=== PATIENT | female | born 1990 | race Caucasian/White ===

== ENCOUNTER 2019-08-08 11:00 | Inpatient (IN) ==
[2019-08-08] MEDS ORDERED: OXYTOCIN 30 UNITS/500 ML BAG IV PRN ×2 (12:40→20:06)
[2019-08-08 13:01] LABS: Hematocrit (blood only) 40.2 % (37-47); Hemoglobin 13.7 g/dL (12.0-16.0); Mean Corpuscular Hemoglobin 32.1 pg (25-34); Mean Corpuscular Volume 94.1 fL (80-100); Mean Platelet Volume 11.3 fL (7.4-10.4); Platelet Count 236 K/uL (130-400); RDW Coefficient of Variation 13.4 % (11.5-14.5); RDW Standard Deviation 45.8 fL (36.4-46.3); Red Blood Count 4.27 M/uL (4.2-5.4)
[2019-08-08 13:25] LABS: Albumin Level 2.9 gm/dl (3.4-5.0); BUN Creatinine Ratio 16.6 (10-20); Calcium 8.8 mg/dl (8.5-10.1); Creatinine Clr Calc Pharmacy 123.9 ml/min; Est GFR (African American) 118.1; Est GFR (Non-African American) 101.9; Mean Corpuscular Hgb Conc 34.1 g/dL (32-36); Potassium 4.1 mmol/L (3.5-5.1)
[2019-08-08 13:28] LABS: Albumin Globulin Ratio 0.7 (0.9-2); Bilirubin,Total 0.4 mg/dl (0.2-1); Globulin 4.4 gm/dl (2.5-4.0); Total Protein 7.3 gm/dl (6.4-8.2)
--- NOTE | 2019-08-08 13:35 | Obstetrical Progress Note ---
Date of Service August 08, 2019 Subjective Admission Note Pt is a 28yo at 36 weeks Hx of preeclampsia in last that led delivery at 36 weeks In this pt has had mild preecalmsia based on BP,proteinuria and 24Hr urine criteria Today she presented for NST and BP check and had 2 elevated BP's in the severe range as well as headache.-This ruled her in as severe preeclampsia Discussed induction with pt and spouse Both agreed to induction of labor FHR; CAT1 Ctx mild on admission VE; 1soft/[facility]; Vt Plan; BMTX GBs culx done Reese bulb placed with 30 cc saline pt tolerated procedure well Results & Data ([facility]) Vital Signs (Past 12 Hours) Vital Signs Temp Pulse Resp BP 08/08/19 13:01 70 155/96 H 08/08/19 12:11 80 142/97 H 08/08/19 11:46 37.2 C 78 20 149/99 H 08/08/19 11:39 78 149/99 H 08/08/19 11:31 83 146/98 H 08/08/19 11:18 86 162/104 H 08/08/19 11:09 95 H 178/102 H
[2019-08-08] MEDS: LACTATED RINGER'S 1,000 ML IV PRN ×2 (13:49→21:26)
[2019-08-08] MEDS ORDERED: OXYTOCIN 30 UNITS/500 ML BAG IV SCH (14:00)
[2019-08-08] MEDS ORDERED: BETAMETH SOD PHOS/ACETATE IA 6 MG/ML IM STA (15:34)
[2019-08-08] MEDS ORDERED: ACETAMINOPHEN 1000 MG/100 ML IV IV PRN (16:00)
[2019-08-08] MEDS ORDERED: PENICILLIN G POTASSIUM 6 MU in DEXTROSE 5% 250 ML IV ONE (16:15)
[2019-08-08] MEDS ORDERED: ACETAMINOPHEN 500 MG TAB PO PRN (16:19)
[2019-08-08] MEDS ORDERED: PENICILLIN G POTASSIUM 3 MU in DEXTROSE 5% 100 ML IV PRN (20:00)
--- NOTE | 2019-08-08 20:06 | Obstetrical Progress Note ---
Date of Service August 08, 2019 Assessment & Plan Admission and Anticipated Discharge Date Admission Date: August 08, 2019 Subjective Reese fell out FHR; CAT1 Ctx Minimal VE;2/50/-3 Unable to SROM Plan start Pitocin discussed plan with pt pt agrees to Pitocin use Results & Data ([facility]) Vital Signs (Past 12 Hours) Vital Signs Temp Pulse Resp BP 08/08/19 19:00 37.6 C H 18 08/08/19 18:38 73 149/94 H 08/08/19 17:39 72 149/96 H 08/08/19 16:38 64 142/90 H 08/08/19 15:27 37.1 C 68 20 157/97 H 08/08/19 15:12 67 148/97 H 08/08/19 14:58 70 147/92 H 08/08/19 14:42 67 144/100 H 08/08/19 14:39 76 143/99 H 08/08/19 14:26 78 138/94 08/08/19 13:01 70 155/96 H 08/08/19 12:11 80 142/97 H 08/08/19 11:46 37.2 C 78 20 149/99 H 08/08/19 11:39 78 149/99 H 08/08/19 11:31 83 146/98 H 08/08/19 11:18 86 162/104 H 08/08/19 11:09 95 H 178/102 H
[2019-08-09] MEDS ORDERED: miSOPROStoL 50 MCG TAB PO ONE ×2 (09:00→13:05)
[2019-08-09] MEDS ORDERED: BETAMETH SOD PHOS/ACETATE IA 6 MG/ML IM STA (16:08)
[2019-08-09] MEDS ORDERED: OXYTOCIN 30 UNITS/500 ML BAG IV PRN ×2 (17:38→22:25)
--- NOTE | 2019-08-09 17:41 | Obstetrical Progress Note ---
Date of Service August 09, 2019 Assessment & Plan Admission and Anticipated Discharge Date Admission Date: August 08, 2019 Subjective Induction for severe preeclampsia Day #2 Stable labs and BP No RUQ pain, headache or SOB FHR; CAT1 Ctx Minimal VE; 2/50/-3 AROM-Clear Received 2 doses of Cytotec today will start Pitocin augmentation Results & Data ([facility]) Vital Signs (Past 12 Hours) Vital Signs Temp Pulse Resp BP 08/09/19 17:07 65 142/94 H 08/09/19 15:35 74 138/96 08/09/19 15:32 20 08/09/19 14:39 18 08/09/19 14:31 80 123/89 08/09/19 13:29 73 142/93 H 08/09/19 13:28 20 08/09/19 12:18 72 145/86 H 08/09/19 12:17 20 08/09/19 11:09 81 140/92 08/09/19 11:08 37.3 C 20 08/09/19 09:33 101 H 139/88 08/09/19 09:03 88 158/94 H 08/09/19 08:33 91 H 145/98 H 08/09/19 08:03 83 139/94 08/09/19 07:43 87 160/99 H 08/09/19 07:04 63 138/92 08/09/19 07:00 37.3 C 70 20 145/90 H 08/09/19 06:33 60 130/79 08/09/19 06:03 60 138/88
[2019-08-09] MEDS: LACTATED RINGER'S 1,000 ML IV PRN (17:45)
[2019-08-09 18:05] LABS: Eosinophils # (auto) 0.03 K/uL (0-0.5); Eosinophils % (auto) 0.2 %; Hematocrit (blood only) 40.3 % (37-47); Hemoglobin 13.8 g/dL (12.0-16.0); Immature Granulocytes # (auto) 0.05 K/uL (0.00-0.02); Immature Granulocytes % (auto) 0.3 %; Lymphocytes # (auto) 1.41 K/uL (1.2-3.4); Lymphocytes % (auto) 9.8 %; Mean Corpuscular Hgb Conc 34.2 g/dL (32-36); Mean Corpuscular Volume 93.5 fL (80-100); Mean Platelet Volume 11.6 fL (7.4-10.4); Monocytes # (auto) 0.69 K/uL (0.11-0.59); Monocytes % (auto) 4.8 %; Neutrophils # (auto) 12.19 K/uL (1.4-6.5); Neutrophils % (auto) 84.9 %; Platelet Count 234 K/uL (130-400); RDW Coefficient of Variation 13.5 % (11.5-14.5); RDW Standard Deviation 46.5 fL (36.4-46.3); Red Blood Count 4.31 M/uL (4.2-5.4); White Blood Count 14.37 K/uL (4.8-10.8)
[2019-08-09 18:23] LABS: Albumin Level 2.7 gm/dl (3.4-5.0); Calcium 8.4 mg/dl (8.5-10.1); Creatinine Clr Calc Pharmacy 104.2 ml/min; Est GFR (African American) 95.7; Est GFR (Non-African American) 82.6; Potassium 3.9 mmol/L (3.5-5.1)
[2019-08-09 18:25] LABS: Albumin Globulin Ratio 0.6 (0.9-2); Bilirubin,Total 0.3 mg/dl (0.2-1); Globulin 4.4 gm/dl (2.5-4.0); Total Protein 7.1 gm/dl (6.4-8.2)
[2019-08-09] MEDS ORDERED: fentaNYL citrate 100 MCG/2 ML VIAL ONE (19:47)
[2019-08-09] MEDS ORDERED: BUPIVACAINE 0.25% 30 ML VIAL ONE (19:47)
[2019-08-09] MEDS ORDERED: ePHEDrine sulfate 50 MG/ML AMP ONE (19:47)
[2019-08-09] MEDS ORDERED: fentaNYL 2MCG/ML ROPIV 1.25MG/ML 100 ML BAG EPI ONE (19:48)
--- NOTE | 2019-08-09 19:51 | Obstetrical Progress Note ---
Date of Service August 09, 2019 Assessment & Plan Admission and Anticipated Discharge Date Admission Date: August 08, 2019 Subjective pt is 30 = weeks . presents to L&D with dec FM NST is reactive Pt was unable to give urine sample Po fluids given Urine is unremarkable pt is discharged home Results & Data ([facility]) Vital Signs (Past 12 Hours) Vital Signs Temp Pulse Resp BP 08/09/19 19:46 78 179/117 H 08/09/19 19:00 36.6 C 18 08/09/19 18:41 79 162/89 H 08/09/19 17:40 37.4 C 70 20 142/91 H 08/09/19 17:07 65 142/94 H 08/09/19 15:35 74 138/96 08/09/19 15:32 20 08/09/19 14:39 18 08/09/19 14:31 80 123/89 08/09/19 13:29 73 142/93 H 08/09/19 13:28 20 08/09/19 12:18 72 145/86 H 08/09/19 12:17 20 08/09/19 11:09 81 140/92 08/09/19 11:08 37.3 C 20 08/09/19 09:33 101 H 139/88 08/09/19 09:03 88 158/94 H 08/09/19 08:33 91 H 145/98 H 08/09/19 08:03 83 139/94
[2019-08-09] MEDS ORDERED: LIDOCAINE HCL 2% MPF (LOCAL) 5 ML VIAL INFIL ONE (20:38)
--- NOTE | 2019-08-09 20:44 | Anesthesiology Consultation ---
Date of Service August 09, 2019 Assessment & Plan Chart Review Chart Review: Acceptable Risk for Labor Epidural Consults Requested none History Height/Weight Height: 5 ft 6 in Weight: 96.162 kg Allergies Allergy/AdvReac Type Severity Reaction Status Date / Time No Known Allergies Allergy Unverified 08/06/19 14:00 Medications Home Medications Medication Instructions Recorded Confirmed Last Taken Vitamin 1 tab PO DAILY 08/06/19 08/08/19 08/07/19 20:30 Active Medications Generic Name Dose Route Start Last Admin Trade Name Freoswaldo PRN Reason Stop Dose Admin Acetaminophen 1,000 mg 08/08/19 16:19 08/08/19 17:27 Tylenol PO 09/07/19 16:18 1,000 mg ONCE PRN Administration Mild Pain Lactated Ringer's 1,000 mls @ 125 mls/hr 08/08/19 12:40 08/09/19 17:45 Lr IV 08/10/19 12:39 125 mls/hr .Q8H PRN Administration L&D Protocol Protocol Oxytocin 30 units in 500 mls @ 0 mls/hr 08/08/19 14:00 08/09/19 05:55 Pitocin IV 09/07/19 13:59 0 units/hr .Q0M DIO 0 mls/hr Titration Protocol 0 UNITS/HR Oxytocin 30 units in 500 mls @ 2 mls/hr 08/08/19 20:06 08/09/19 18:56 Pitocin IV 08/10/19 20:05 0.12 units/hr .Q24H PRN 2 mls/hr Labor Induction/Augmentation Administration Protocol 0.12 UNITS/HR Past Family History Family History Father Colon cancer Past Surgical History Surgical History History of incision and drainage (~08/19/03) History of tonsillectomy and adenoidectomy (~09/20/94) Social History Smoking Status: Never smoker Do You Dip or Chew Tobacco: No Hx Alcohol Use: No Hx Substance Use: No Physical Exam Vital Signs Last Vital Signs Temp 36.6 C 08/09/19 19:00 Pulse 106 H 08/09/19 20:42 Resp 18 08/09/19 19:00 BP 142/83 H 08/09/19 20:39 Pulse Ox 97 08/09/19 20:42 Testing Laboratory Results 08/09/19 17:51 08/09/19 17:51
[2019-08-09] MEDS ORDERED: PROMETHAZINE HCL 25 MG in SODIUM CHLORIDE 0.9% 50 ML IV PRN (20:48)
[2019-08-09] MEDS ORDERED: ePHEDrine sulfate 50 MG/ML AMP IV PRN (20:48)
[2019-08-09] MEDS ORDERED: NALOXONE HCL 0.4 MG/1 ML VIAL/CARP IV PRN (20:48)
[2019-08-09] MEDS ORDERED: ONDANSETRON INJ 2 MG/ML 2 ML VIAL IV PRN (20:48)
[2019-08-09] MEDS ORDERED: METOCLOPRAMIDE HCL 20 MG in SODIUM CHLORIDE 0.9% 50 ML IV PRN (20:48)
[2019-08-09] MEDS ORDERED: NALBUPHINE HCL INJ 10 MG/ML AMP IV PRN (20:48)
[2019-08-09] MEDS ORDERED: DiphenhydrAMINE HCL 50 MG/ML VIAL IV PRN (20:48)
[2019-08-09] MEDS ORDERED: fentaNYL 2MCG/ML ROPIV 1.25MG/ML 100 ML BAG EPI PRN (20:48)
[2019-08-09] MEDS ORDERED: NALOXONE HCL 1 MG in SODIUM CHLORIDE 0.9% 1000ML 1,000 ML IV PRN (20:48)
[2019-08-09] MEDS ORDERED: SUPERCREAM 0.870% 15 GM JAR EXT PRN (22:25)
[2019-08-09] MEDS ORDERED: bisacodyL 10 MG SUPP PR PRN (22:25)
[2019-08-09] MEDS ORDERED: IBUPROFEN 600 MG TAB PO PRN (22:25)
[2019-08-09] MEDS ORDERED: ACETAMINOPHEN 325 MG TAB PO PRN (22:25)
[2019-08-09] MEDS ORDERED: BENZOCAINE 20% AER SPR 82.5 GM CAN EXT PRN (22:25)
[2019-08-09] MEDS ORDERED: HYDROCORTISONE ACETATE 25 MG SUPP PR PRN (22:25)
[2019-08-09] MEDS ORDERED: DIPHTHERIA/TETANUS/PERTUSSIS 0.5 ML SYR/VIAL IM ONE (22:25)
[2019-08-09] MEDS: HydrALAZINE HCL 20 MG/ML VIAL IV STA ×2 (23:22→23:27)
[2019-08-10] MEDS ORDERED: miSOPROStoL 200 MCG TAB PR ONE (00:03)
[2019-08-10] MEDS ORDERED: miSOPROStoL 200 MCG TAB ONE (00:06)
--- NOTE | 2019-08-10 01:23 | Anesthesia Procedure Note ---
Date of Service August 10, 2019 Anesthesia Post Epidural Note Vital Signs Vital Signs: Temp Pulse Resp BP Pulse Ox 37.4 C 75 18 143/94 H 98 08/09/19 21:09 08/10/19 01:20 08/09/19 21:09 08/10/19 01:20 08/09/19 22:12 Pain Intensity Head: Pain Intensity: 5 Notes Mental Status: alert / awake / arousable Patient Amnestic to Procedure: No Nausea / Vomiting: adequately controlled Pain: adequately controlled Airway Patency, RR, SpO2: stable & adequate BP & HR: stable & adequate Hydration State: stable & adequate Neuraxial Anesthesia: was administered and sensory block is resolving Anesthetic Complications: no major complications apparent and Pt Satisfied with anesthetic care Epidural: Removed without complications and With tip intact
[2019-08-10 06:52] LABS: Hematocrit (blood only) 40.3 % (37-47); Hemoglobin 13.7 g/dL (12.0-16.0); Mean Corpuscular Hemoglobin 31.9 pg (25-34); Mean Corpuscular Volume 93.9 fL (80-100); Platelet Count 252 K/uL (130-400); RDW Coefficient of Variation 13.7 % (11.5-14.5); RDW Standard Deviation 46.7 fL (36.4-46.3); Red Blood Count 4.29 M/uL (4.2-5.4); White Blood Count 24.43 K/uL (4.8-10.8)
[2019-08-10] MEDS ORDERED: LABETALOL HCL 100 MG TAB ONE (07:58)
[2019-08-10] MEDS: PRENATAL VITAMIN 1 TAB PO SCH (08:00)
[2019-08-10] MEDS: DOCUSATE SODIUM 100 MG CAP PO SCH ×2 (08:00→21:15)
[2019-08-10] MEDS: FERROUS SULFATE 325 MG TAB PO SCH (08:00)
--- NOTE | 2019-08-10 08:07 | Delivery Summary ---
DATE OF OPERATION: 08/09/2019 The patient delivered a live infant female in left occiput anterior presentation. There was nuchal cord which was easily reduced. Infant was delivered, placed on mother's abdomen. Cord clamp was performed after 1 minute. Infant's weight is in the pediatric record. Apgars 9 and 10. Placenta is spontaneously delivered. Inspection of the placenta shows a normal grossly looking placenta. Placenta is sent to Pathology for pathologic analysis because of severe preeclampsia. Inspection of the perineum showed a midline first degree laceration which is repaired with Vicryl stitch. Rectal exam post repair showed good sphincter tone, no sutures are palpated in the rectum. Estimated blood loss is 450 mL. Baby and mother are doing well in Recovery. All instruments were removed from the vagina including needles, sponges, retractors and accounted for x2. I attest to the content of the Intraoperative Record and any orders documented therein. Any exceptions are noted below. BINTAD
--- NOTE | 2019-08-10 09:27 | Obstetrical Progress Note ---
Date of Service August 10, 2019 Assessment & Plan Admission and Anticipated Discharge Date Admission Date: August 08, 2019 Subjective PPD#1 doing well tolerating diet out of bed no pain or bleeding no visual changes or any headaches Physical Exam Constitutional: WD/WN, vitals as above comfortable abdomen soft and non- tender fundus firm no edema neg Edwin's tent d/c in AM Results & Data ([facility]) Vital Signs (Past 12 Hours) Vital Signs Temp Pulse Pulse Resp BP BP Pulse Ox 08/10/19 09:00 36.6 C 69 18 138/93 98 08/10/19 07:30 36.7 C 69 18 158/108 H 98 08/10/19 03:35 36.6 C 73 18 149/102 H 08/10/19 01:50 36.7 C 79 20 147/97 H 08/10/19 01:20 75 143/94 H 08/10/19 00:50 78 160/93 H 08/10/19 00:35 83 159/95 H 08/10/19 00:20 88 151/88 H 08/10/19 00:05 90 158/84 H 08/09/19 23:50 87 159/83 H 08/09/19 23:35 88 158/92 H 08/09/19 23:22 72 159/93 H 08/09/19 23:05 68 140/82 08/09/19 22:57 68 142/89 H 08/09/19 22:50 77 187/102 H 08/09/19 22:35 80 186/99 H 08/09/19 22:20 86 173/99 H 08/09/19 22:12 82 98 08/09/19 22:07 86 97 08/09/19 22:06 90 182/87 H 08/09/19 22:02 80 97 08/09/19 21:58 91 H 171/76 H 08/09/19 21:57 81 95 08/09/19 21:53 81 93 08/09/19 21:52 88 176/117 H 97 08/09/19 21:47 81 97 08/09/19 21:44 79 94 08/09/19 21:42 90 97 08/09/19 21:37 73 95 08/09/19 21:33 71 144/91 H 08/09/19 21:32 83 97 08/09/19 21:30 71 148/87 H 08/09/19 21:27 81 174/81 H 96 Laboratory Results Laboratory Results - last 48 hr 08/08/19 08/08/19 08/08/19 12:52 12:52 12:52 WBC 13.40 H RBC 4.27 Hgb 13.7 Hct 40.2 MCV 94.1 MCH 32.1 MCHC 34.1 RDW Std Deviation 45.8 RDW Coeff of Jennifer 13.4 Plt Count 236 MPV 11.3 H Immature Gran % (Auto) Neut % (Auto) Lymph % (Auto) [place] % (Auto) Eos % (Auto) Baso % (Auto) Immature Gran # (Auto) Neut # (Auto) Lymph # (Auto) [place] # (Auto) Eos # (Auto) Baso # (Auto) Sodium 136 Potassium 4.1 Chloride 104 Carbon Dioxide 24 Anion Gap 8.0 BUN 13 Creatinine 0.79 Est Cr Clr Drug Dosing 123.9 Est GFR ( Amer) 118.1 Est GFR (Non-Af Amer) 101.9 BUN/Creatinine Ratio 16.6 Glucose 73 Calcium 8.8 Total Bilirubin 0.4 AST 17 ALT 17 Alkaline Phosphatase 111 Lactate Dehydrogenase 182 Total Protein 7.3 Albumin 2.9 L Globulin 4.4 H Albumin/Globulin Ratio 0.7 L 08/09/19 08/09/19 08/10/19 17:51 17:51 05:38 WBC 14.37 H 24.43 H D RBC 4.31 4.29 Hgb 13.8 13.7 Hct 40.3 40.3 MCV 93.5 93.9 MCH 32.0 31.9 MCHC 34.2 34.0 RDW Std Deviation 46.5 H 46.7 H RDW Coeff of Jennifer 13.5 13.7 Plt Count 234 252 MPV 11.6 H 12.0 H Immature Gran % (Auto) 0.3 Neut % (Auto) 84.9 Lymph % (Auto) 9.8 [place] % (Auto) 4.8 Eos % (Auto) 0.2 Baso % (Auto) 0.0 Immature Gran # (Auto) 0.05 H Neut # (Auto) 12.19 H Lymph # (Auto) 1.41 [place] # (Auto) 0.69 H Eos # (Auto) 0.03 Baso # (Auto) 0.00 Sodium 136 Potassium 3.9 Chloride 105 Carbon Dioxide 21 Anion Gap 10.0 BUN 14 Creatinine 0.94 Est Cr Clr Drug Dosing 104.2 Est GFR ( Amer) 95.7 Est GFR (Non-Af Amer) 82.6 BUN/Creatinine Ratio 15.0 Glucose 114 H Calcium 8.4 L Total Bilirubin 0.3 AST 16 ALT 17 Alkaline Phosphatase 121 H Lactate Dehydrogenase Total Protein 7.1 Albumin 2.7 L Globulin 4.4 H Albumin/Globulin Ratio 0.6 L
[2019-08-10] MEDS: LABETALOL HCL 100 MG TAB PO SCH ×2 (13:08→21:15)
[2019-08-10] MEDS ORDERED: bisacodyL 5 MG TABEC PO SCH (20:00)
[2019-08-11] MEDS ORDERED: LABETALOL HCL 100 MG TAB PO SCH
[2019-08-11 08:10] LABS: Hemoglobin 12.3 g/dL (12.0-16.0)
[2019-08-11] MEDS: PRENATAL VITAMIN 1 TAB PO SCH (08:54)
[2019-08-11] MEDS: FERROUS SULFATE 325 MG TAB PO SCH (08:54)
[2019-08-11] MEDS: LABETALOL HCL 100 MG TAB PO SCH (08:54)
[2019-08-11] MEDS: DOCUSATE SODIUM 100 MG CAP PO SCH (08:54)
[2019-08-11 09:31] LABS: Basophils # (auto) 0.01 K/uL (0-0.2); Basophils % (auto) 0.1 %; Eosinophils # (auto) 0.07 K/uL (0-0.5); Eosinophils % (auto) 0.4 %; Hematocrit (blood only) 36.9 % (37-47); Hemoglobin 12.2 g/dL (12.0-16.0); Immature Granulocytes % (auto) 0.6 %; Lymphocytes # (auto) 3.01 K/uL (1.2-3.4); Lymphocytes % (auto) 17.6 %; Mean Corpuscular Hemoglobin 31.7 pg (25-34); Mean Corpuscular Hgb Conc 33.1 g/dL (32-36); Mean Corpuscular Volume 95.8 fL (80-100); Mean Platelet Volume 10.9 fL (7.4-10.4); Monocytes # (auto) 1.09 K/uL (0.11-0.59); Monocytes % (auto) 6.4 %; Neutrophils % (auto) 74.9 %; Platelet Count 259 K/uL (130-400); Red Blood Count 3.85 M/uL (4.2-5.4); White Blood Count 17.08 K/uL (4.8-10.8)
[2019-08-11 10:06] LABS: Albumin Level 2.6 gm/dl (3.4-5.0); BUN Creatinine Ratio 13.9 (10-20); Calcium 8.3 mg/dl (8.5-10.1); Creatinine Clr Calc Pharmacy 122.4 ml/min; Est GFR (African American) 116.3; Est GFR (Non-African American) 100.3; Potassium 3.5 mmol/L (3.5-5.1)
[2019-08-11 10:09] LABS: Albumin Globulin Ratio 0.7 (0.9-2); Bilirubin,Total 0.2 mg/dl (0.2-1); Total Protein 6.6 gm/dl (6.4-8.2)
--- NOTE | 2019-08-11 10:41 | Obstetrical Progress Note ---
Date of Service August 11, 2019 Assessment & Plan Admission and Anticipated Discharge Date Admission Date: August 08, 2019 Subjective Patient is seen and examined. She feels well, no complaints. Desires discharge today Ambulating without dizziness Voiding without difficulty Tolerating regular diet with out N&V Bleeding is minimal No WILLS/ Change in vision/RUQ or epigastric pain/ fever/ chills/ CP/ SOB/ N&V/ Leg pain Breast feeding without problems Vital Signs Temp Pulse Resp BP Pulse Ox 08/11/19 08:25 37 C 72 18 142/95 H 97 08/11/19 05:45 36.7 C 70 16 128/88 96 08/11/19 00:00 36.6 C 74 17 126/82 97 08/10/19 21:15 36.8 C 74 18 133/88 98 08/10/19 16:00 36.6 C 73 16 137/93 08/10/19 11:30 36.6 C 82 18 140/90 97 Lab Results 08/08/19 08/08/19 08/08/19 Range/Units 12:52 12:52 12:52 WBC 13.40 H (4.8-10.8) K/uL RBC 4.27 (4.2-5.4) M/uL Hgb 13.7 (12.0-16.0) g/dL Hct 40.2 (37-47) % MCV 94.1 (80-100) fL MCH 32.1 (25-34) pg MCHC 34.1 (32-36) g/dL RDW Std Deviation 45.8 (36.4-46.3) fL RDW Coeff of Jennifer 13.4 (11.5-14.5) % Plt Count 236 (130-400) K/uL MPV 11.3 H (7.4-10.4) fL Immature Gran % (Auto) % Neut % (Auto) % Lymph % (Auto) % [place] % (Auto) % Eos % (Auto) % Baso % (Auto) % Immature Gran # (Auto) (0.00-0.02) K/uL Neut # (Auto) (1.4-6.5) K/uL Lymph # (Auto) (1.2-3.4) K/uL [place] # (Auto) (0.11-0.59) K/uL Eos # (Auto) (0-0.5) K/uL Baso # (Auto) (0-0.2) K/uL Sodium 136 (136-145) mmol/L Potassium 4.1 (3.5-5.1) mmol/L Chloride 104 (98-107) mmol/L Carbon Dioxide 24 (21-32) mmol/L Anion Gap 8.0 (3-11) BUN 13 (7-18) mg/dl Creatinine 0.79 (0.6-1.2) mg/dl Est Cr Clr Drug Dosing 123.9 ml/min Est GFR ( Amer) 118.1 Est GFR (Non-Af Amer) 101.9 BUN/Creatinine Ratio 16.6 (10-20) Glucose 73 (70-99) mg/dl Calcium 8.8 (8.5-10.1) mg/dl Total Bilirubin 0.4 (0.2-1) mg/dl AST 17 (15-37) U/L ALT 17 (12-78) U/L Alkaline Phosphatase 111 (45-117) U/L Lactate Dehydrogenase 182 (84-246) U/L Total Protein 7.3 (6.4-8.2) gm/dl Albumin 2.9 L (3.4-5.0) gm/dl Globulin 4.4 H (2.5-4.0) gm/dl Albumin/Globulin Ratio 0.7 L (0.9-2) 08/09/19 08/09/19 08/10/19 Range/Units 17:51 17:51 05:38 WBC 14.37 H 24.43 H D (4.8-10.8) K/uL RBC 4.31 4.29 (4.2-5.4) M/uL Hgb 13.8 13.7 (12.0-16.0) g/dL Hct 40.3 40.3 (37-47) % MCV 93.5 93.9 (80-100) fL MCH 32.0 31.9 (25-34) pg MCHC 34.2 34.0 (32-36) g/dL RDW Std Deviation 46.5 H 46.7 H (36.4-46.3) fL RDW Coeff of Jennifer 13.5 13.7 (11.5-14.5) % Plt Count 234 252 (130-400) K/uL MPV 11.6 H 12.0 H (7.4-10.4) fL Immature Gran % (Auto) 0.3 % Neut % (Auto) 84.9 % Lymph % (Auto) 9.8 % [place] % (Auto) 4.8 % Eos % (Auto) 0.2 % Baso % (Auto) 0.0 % Immature Gran # (Auto) 0.05 H (0.00-0.02) K/uL Neut # (Auto) 12.19 H (1.4-6.5) K/uL Lymph # (Auto) 1.41 (1.2-3.4) K/uL [place] # (Auto) 0.69 H (0.11-0.59) K/uL Eos # (Auto) 0.03 (0-0.5) K/uL Baso # (Auto) 0.00 (0-0.2) K/uL Sodium 136 (136-145) mmol/L Potassium 3.9 (3.5-5.1) mmol/L Chloride 105 (98-107) mmol/L Carbon Dioxide 21 (21-32) mmol/L Anion Gap 10.0 (3-11) BUN 14 (7-18) mg/dl Creatinine 0.94 (0.6-1.2) mg/dl Est Cr Clr Drug Dosing 104.2 ml/min Est GFR ( Amer) 95.7 Est GFR (Non-Af Amer) 82.6 BUN/Creatinine Ratio 15.0 (10-20) Glucose 114 H (70-99) mg/dl Calcium 8.4 L (8.5-10.1) mg/dl Total Bilirubin 0.3 (0.2-1) mg/dl AST 16 (15-37) U/L ALT 17 (12-78) U/L Alkaline Phosphatase 121 H (45-117) U/L Lactate Dehydrogenase (84-246) U/L Total Protein 7.1 (6.4-8.2) gm/dl Albumin 2.7 L (3.4-5.0) gm/dl Globulin 4.4 H (2.5-4.0) gm/dl Albumin/Globulin Ratio 0.6 L (0.9-2) 08/11/19 08/11/19 08/11/19 Range/Units 07:42 09:20 09:20 WBC 17.08 H (4.8-10.8) K/uL RBC 3.85 L (4.2-5.4) M/uL Hgb 12.3 12.2 (12.0-16.0) g/dL Hct 37.0 36.9 L (37-47) % MCV 95.8 (80-100) fL MCH 31.7 (25-34) pg MCHC 33.1 (32-36) g/dL RDW Std Deviation 49.0 H (36.4-46.3) fL RDW Coeff of Jennifer 14.0 (11.5-14.5) % Plt Count 259 (130-400) K/uL MPV 10.9 H (7.4-10.4) fL Immature Gran % (Auto) 0.6 % Neut % (Auto) 74.9 % Lymph % (Auto) 17.6 % [place] % (Auto) 6.4 % Eos % (Auto) 0.4 % Baso % (Auto) 0.1 % Immature Gran # (Auto) 0.10 H (0.00-0.02) K/uL Neut # (Auto) 12.80 H (1.4-6.5) K/uL Lymph # (Auto) 3.01 (1.2-3.4) K/uL [place] # (Auto) 1.09 H (0.11-0.59) K/uL Eos # (Auto) 0.07 (0-0.5) K/uL Baso # (Auto) 0.01 (0-0.2) K/uL Sodium 138 (136-145) mmol/L Potassium 3.5 (3.5-5.1) mmol/L Chloride 105 (98-107) mmol/L Carbon Dioxide 25 (21-32) mmol/L Anion Gap 8.0 (3-11) BUN 11 (7-18) mg/dl Creatinine 0.80 (0.6-1.2) mg/dl Est Cr Clr Drug Dosing 122.4 ml/min Est GFR ( Amer) 116.3 Est GFR (Non-Af Amer) 100.3 BUN/Creatinine Ratio 13.9 (10-20) Glucose 93 (70-99) mg/dl Calcium 8.3 L (8.5-10.1) mg/dl Total Bilirubin 0.2 (0.2-1) mg/dl AST 16 (15-37) U/L ALT 18 (12-78) U/L Alkaline Phosphatase 90 (45-117) U/L Lactate Dehydrogenase (84-246) U/L Total Protein 6.6 (6.4-8.2) gm/dl Albumin 2.6 L (3.4-5.0) gm/dl Globulin 4.0 (2.5-4.0) gm/dl Albumin/Globulin Ratio 0.7 L (0.9-2) PE: General: Alert, orientedx3, NAD Abd: soft, NT, fundus firm, below Umbilicus Perineum intact, Lochia rubra minimal Ext; NT, 1+/1+ edema, Homans sign negative AP: 28 yo s/p , ppd# 2 VSS Afebrile doing well BP stable with Labetalol 100 mg bid Continue routine care All questions were answered Discussed when to call Instructed about daily BP and when to call D/C home , f/u in office in a week Results & Data ([facility]) Vital Signs (Past 12 Hours) Vital Signs Temp Pulse Resp BP Pulse Ox 08/11/19 08:25 37 C 72 18 142/95 H 97 08/11/19 05:45 36.7 C 70 16 128/88 96 08/11/19 00:00 36.6 C 74 17 126/82 97
== END 2019-08-11 13:00 | disposition home or self-care (01) | DRG 807 ==
LOC: OPB 11:00 → 4S1 11:01 → 4S2 08-10 01:45